=== PATIENT | male | born 1995 | race Caucasian/White ===

== ENCOUNTER 2017-01-10 11:39 | Emergency (ER) | payer OTHER ==
[2017-01-10 12:49] LABS: HEMOGLOBIN 15.3 gm/dl (14.0-17.5); RED BLOOD COUNT 5.18 M/UL (4.20-5.50); WHITE BLOOD COUNT 7.4 K/UL (4.5-11.0)
[2017-01-10 13:15] LABS: BUN/CREATININE RATIO 17 (0-10)
== END 2017-01-10 15:25 | disposition home or self-care (01) ==
LOC: ER1 11:39
PROVIDERS: Family Medicine
DX: R07.89 Other chest pain (principal)
CPT/HCPCS: 36415; 71010; 80053; 82550; 82553; 83874; 84484; 85025; 85379; 93005; 96374; 99285; J1885